=== PATIENT | female | born 1975 | race Caucasian/White ===

== ENCOUNTER 2023-11-25 13:41 | Emergency (ER) | payer BC ==
[2023-11-25] MEDS ORDERED: ONDANSETRON 4 MG/2 ML VIAL ONE (14:46)
[2023-11-25] MEDS ORDERED: MORPHINE 4 MG/ML SYR ONE (14:47)
[2023-11-25] MEDS ORDERED: NA CHLORIDE 0.9% 1,000 ML ONE (14:47)
[2023-11-25 14:56] LABS: Absolute Eosinophils 0.1 K/uL (0-0.5); Absolute Lymphocytes (CBC) 0.4 K/uL (0.7-4.9); Absolute Monocytes 0.4 K/uL (0.1-1.3); Absolute Neutrophil 6.2 K/uL (1.8-8.0); Basophils % 0.3 % (0-1.3); Eosinophils % 1.9 % (0-4.4); Hematocrit 42.5 % (36.0-45.0); Hemoglobin 14.1 g/dL (12.0-15.0); Lymphocytes % 5.4 % (15.3-44.8); MCH 29.1 pg (27.0-35.0); MCHC 33.3 g/dL (32.0-36.0); MCV 87.5 fL (80-100); MPV 9.8 fL (7.6-11.3); Monocytes % 6.3 % (3.3-12.3); Neutrophils % 86.1 % (41.7-73.7); Platelets 186 thou/uL (152-406); RBC Red Blood Cell Count 4.85 M/uL (3.86-4.86)
[2023-11-25] MEDS ORDERED: KETOROLAC 30 MG/ML INJ ONE (14:58)
[2023-11-25 15:13] LABS: Albumin/Globulin Ratio 1.1 (1.1-1.8); Anion Gap 9.7 mEq/L (5.0-15.0); Globulin 3.7 g/dL (2.3-3.5); Potassium 3.7 mEq/L (3.5-5.1); Protein, Total 7.7 g/dL (6.4-8.2)
--- NOTE | 2023-11-25 16:18 | RAD REPORT ---
EXAM DESCRIPTION: CT - Abdomen Pelvis W Contrast - 11/25/2023 4:00 pm CLINICAL HISTORY: Abdominal pain COMPARISON: none. TECHNIQUE: Computed axial tomography of the abdomen pelvis was obtained. 100 cc Isovue-300 was admin istered intravenously. Oral contrast was not requested which limits evaluation of bowel and appendix All CT scans are performed using dose optimization technique as appropriate and may include automated exposure control or mA/KV adjustment according to patient size. FINDINGS: Cholecystectomy The liver, spleen, pancreas, adrenal and kidneys appear unremarkable. There is no evidence of diverticulitis. No adnexal mass. Loop of jejunum mildly to moderately dilated. A calcification is present within the appendix. Portions of the appendix are visualized and are angie l caliber. Small amount of free fluid within the pelvis IMPRESSION: Mild to moderate dilatation of a loop of jejunum probably an enteritis or ileus. An bharat y/partial obstruction is considered less likely. If the patient's symptoms persist followup abdominal plain film series would be recommended Small amount of free fluid within the pelvis
[2023-11-25 16:19] LABS: Blood Morphology Comment NOT SEEN (NOT SEEN); Platelet Estimate ADEQ; White Blood Cell Scan OK (OK)
[2023-11-25 18:18] LABS: Hepatitis B Core IgM Nonreactive (Nonreactive); Hepatitis B surface AG Interp. Nonreactive (Nonreactive); Hepatitis C Virus Ab Nonreactive (Nonreactive)
[2023-11-25 18:19] LABS: HBsAG Nonreactive Report Report
--- NOTE | 2023-11-25 18:24 | ER ---
Nurse's Notes [facility] Name: Alyssa Damon Age: 48 yrs Sex: Female : 1975 Arrival Date: 11/25/2023 Time: 13:41 Bed 6 Private MD: Diagnosis: acute enteritis Presentation: 11/24 14:09 Chief complaint: Patient states: Abdominal pressure worse after eating. + nausea and ll1 constipation. No fever. Coronavirus screen: Client denies travel out of the [place] in the last 14 days. At this time, the client does not indicate any symptoms associated with coronavirus-19. Ebola Screen: Patient denies travel to an Ebola-affected area in the 21 days before illness onset. Initial Sepsis Screen: Does the patient meet any 2 criteria? No. Patient's initial sepsis screen is negative. Does the patient have a suspected source of infection? No. Patient's initial sepsis screen is negative. Risk Assessment: Do you want to hurt yourself or someone else? Patient reports no desire to harm self or others. Onset of symptoms was November 22, 2023. 14:09 Method Of Arrival: Ambulatory [facility] 14:09 Acuity: [place] 3 ll1 Triage Assessment: 14:11 General: Appears uncomfortable, ill, Behavior is calm, cooperative, appropriate for 1 age. Pain: Complains of pain in abdomen Quality of pain is described as aching, pressure, Pain began 2-3 days ago. Neuro: No deficits noted. Cardiovascular: No deficits noted. GI: Reports lower abdominal pain, upper abdominal pain, constipation, cramping, nausea. Historical: - Allergies: 14:08 Latex, Natural Rubber; ll1 14:08 Nickel; ll1 - PMHx: 14:08 None; ll1 - PSHx: 14:08 Tummy tuck with revision; Cholecystectomy; section; tubes tied, ablation; ll1 - Immunization history:: Adult Immunizations up to date. - Social history:: Smoking status: Patient denies any tobacco usage or history of. Screenin:[facility] ED Fall Risk Assessment (Adult) History of falling in the last 3 months, mb9 including since admission No falls in past 3 months (0 pts) Confusion or Disorientation No (0 pts) Intoxicated or Sedated No (0 pts) Impaired Gait No (0 pts) Mobility Assist Device Used No (0 pt) Altered Elimination No (0 pt) Score/Fall Risk Level 0 - 2 = Low Risk Oriented to surroundings, Maintained a safe environment, Educated pt \T\ family on fall prevention, incl call for assistance when getting out of bed, Assessed \T\ reinforced patient's understanding of fall precautions. Abuse screen: Denies threats or abuse. Nutritional screening: No deficits noted. Tuberculosis screening: No symptoms or risk factors identified. Assessment: 14:53 General: Appears uncomfortable, Behavior is cooperative. Pain: Complains of pain in mb9 abdomen Pain radiates to LUQ. Neuro: Oneal Agitation-Sedation Scale (RASS): 0 - Alert and Calm Level of Consciousness is awake, alert, obeys commands, Oriented to person, place, time, situation, Appropriate for age. Cardiovascular: Patient's skin is warm and dry. Respiratory: Airway is patent Respiratory effort is even, unlabored, Respiratory pattern is regular, symmetrical. GI: Abdomen is round non-distended, Bowel sounds present X 4 quads. Abd is soft Abdomen is tender to palpation in left upper quadrant and left lower quadrant. : No signs and/or symptoms were reported regarding the genitourinary system. EENT: No signs and/or symptoms were reported regarding the EENT system. Derm: Skin is intact, Skin is dry, Skin is pale, Skin temperature is cool. Musculoskeletal: Range of motion: intact in all extremities. 16:31 Reassessment: No changes from previously documented assessment. Patient and/or family mb9 updated on plan of care and expected duration. Pain level reassessed. Patient is alert, oriented x 3, equal unlabored respirations, skin warm/dry/pink. 17:30 Reassessment: No changes from previously documented assessment. Patient and/or family mb9 updated on plan of care and expected duration. Pain level reassessed. Patient is alert, oriented x 3, equal unlabored respirations, skin warm/dry/pink. 18:28 Reassessment: No changes from previously documented assessment. Patient and/or family mb9 updated on plan of care and expected duration. Pain level reassessed. Patient is alert, oriented x 3, equal unlabored respirations, skin warm/dry/pink. Vital Signs: 14:09 BP 118 / 78; Pulse 80; Resp 18; Temp 97.8; Pulse Ox 100% ; Weight 72.57 kg; Height 5 ll1 ft. 4 in. ; Pain 7/10; 15:31 BP 117 / 73; Pulse 74; Resp 16; Pulse Ox 100% on R/A; mb9 17:15 BP 113 / 72; Pulse 72; Resp 16; Pulse Ox 100% on R/A; mb9 18:28 BP 118 / 76; Pulse 78; Resp 18; Pulse Ox 100% on R/A; mb9 14:09 Body Mass Index 27.46 (72.57 kg, 162.56 cm) ll1 14:09 Pain Scale: Adult ll1 ED Course: 13:44 Patient arrived in ED. im 13:51 Talia Machado PA-C is PHCP. sb4 13:51 Luis Bran DO is Attending Physician. sb4 13:59 Arm band placed on. ll1 14:10 Triage completed. ll1 14:43 CBC with Diff Sent. bc6 14:43 CMP Sent. bc6 14:43 Lipase Sent. bc6 14:43 Initial lab(s) drawn, by me, sent to lab. Inserted saline lock: 20 gauge in left bc6 antecubital area, using aseptic technique. Blood collected. 14:44 Jessie Steven, RN is Primary Nurse. mb9 14:53 CBC with Diff Sent. mb9 14:53 CMP Sent. mb9 14:53 Lipase Sent. mb9 14:55 Placed in gown. Bed in low position. Call light in reach. Side rails up X 1. Provided mb9 Education on: press call light if needing anything. Client placed on continuous cardiac and pulse oximetry monitoring. NIBP monitoring applied. Door closed. Noise minimized. Warm blanket given. 14:55 No provider procedures requiring assistance completed. mb9 16:02 CT Abd/Pelvis - IV Contrast Only In Process Unspecified. EDMS 18:29 IV discontinued, intact, bleeding controlled, No redness/swelling at site. Pressure mb9 dressing applied. Administered Medications: 14:53 Drug: NS 0.9% IV 1000 ml IV at 1 bolus Per protocol; 1000 mL bolus Route: IV; Rate: 1 mb9 bolus; Site: left antecubital; 17:59 Follow up: Response: No adverse reaction; IV Status: Completed infusion mb9 14:53 Drug: Ondansetron IVP 4 mg IVP once; over 2 minutes Route: IVP; Site: left antecubital; mb9 17:59 Follow up: Response: No adverse reaction mb9 14:53 Not Given (Patient Refused): morphineor iv 4 mg IVP once over 4 mins mb9 14:59 Drug: Ketorolac IVP 30 mg IVP once Route: IVP; Site: left antecubital; mb9 17:59 Follow up: Response: No adverse reaction mb9 18:28 Drug: Dicyclomine IM 20 mg IM once Route: IM; Site: left gluteus; mb9 18:33 Follow up: Response: No adverse reaction mb9 Medication: 14:55 VIS not applicable for this client. mb9 Outcome: 18:23 Discharge ordered by . sb4 18:33 Discharged to home ambulatory, mb9 18:33 Condition: stable 18:33 Discharge instructions given to patient, Instructed on discharge instructions, follow up and referral plans. Demonstrated understanding of instructions, follow-up care, medications, Prescriptions given X 2, 18:33 Patient left the ED. mb9 Signatures: Dispatcher [employer] EDJessy Stratton, RN RN ll1 Talia Machado, PA-C PA-C [id number] Jessie Steven RN RN mb9 Alba Cotto6 Asha Soliman
--- NOTE | 2023-11-25 18:24 | EDPHYS ---
Physician Documentation [facility] Name: Alyssa Damon Age: 48 yrs Sex: Female : 1975 Arrival Date: 11/25/2023 Time: 13:41 Bed 6 Private MD: ED Physician Luis Bran HPI: 11/24 14:14 This 48 yrs old Female presents to ER via Ambulatory with complaints of Abdominal Pain. sb4 14:14 The patient presents with abdominal pain in the periumbilical area. Onset: The sb4 symptoms/episode began/occurred 3 day(s) ago. The symptoms do not radiate. Associated signs and symptoms: Pertinent positives: nausea. The symptoms are described as pressure. Modifying factors: The symptoms are alleviated by nothing, the symptoms are aggravated by food. The patient has not experienced similar symptoms in the past. Patient states that she has been nauseated and having a lot of abdominal pressure in her mid abdomen for the past 3 days. She states that she did start on phentermine 3 weeks ago, but she has taken in the past without any issues. States that she has been taking a laxative with the medication and has had several bowel movements today. She also states that last week she had a revision to her tummy tuck as well as some liposuction. Historical: - Allergies: 14:08 Latex, Natural Rubber; ll1 14:08 Nickel; ll1 - PMHx: 14:08 None; ll1 - PSHx: 14:08 Tummy tuck with revision; Cholecystectomy; section; tubes tied, ablation; ll1 - Immunization history:: Adult Immunizations up to date. - Social history:: Smoking status: Patient denies any tobacco usage or history of. ROS: 14:14 Constitutional: Negative for fever, chills, and weight loss, sb4 14:14 Abdomen/GI: Positive for abdominal pain, nausea, 14:14 All other systems are negative, Exam: 14:14 Constitutional: The patient appears alert, awake, uncomfortable, sb4 14:14 Abdomen/GI: 17:18 Head/Face: Normocephalic, atraumatic. Eyes: Extra-ocular motions intact. Periorbital sb4 areas with no swelling, redness, or edema. ENT: Mucous membranes moist. Cardiovascular: Regular rate and rhythm with a normal S1 and S2. Respiratory: Lungs have equal breath sounds bilaterally, clear to auscultation and percussion. No rales, rhonchi or wheezes noted. No increased work of breathing, no retractions or nasal flaring. Abdomen/GI: Soft, non-tender, no distension. Skin: Warm, dry with normal turgor. Normal color with no rashes, no lesions, and no evidence of cellulitis. MS/ Extremity: Pulses equal, no cyanosis. Neurovascular intact. Full, normal range of motion. Neuro: Awake and alert, GCS 15, oriented to person, place, time, and situation. Motor strength 5/5 in all extremities. Sensory grossly intact. Vital Signs: 14:09 BP 118 / 78; Pulse 80; Resp 18; Temp 97.8; Pulse Ox 100% ; Weight 72.57 kg; Height 5 ll1 ft. 4 in. ; Pain 7/10; 15:31 BP 117 / 73; Pulse 74; Resp 16; Pulse Ox 100% on R/A; mb9 17:15 BP 113 / 72; Pulse 72; Resp 16; Pulse Ox 100% on R/A; mb9 18:28 BP 118 / 76; Pulse 78; Resp 18; Pulse Ox 100% on R/A; mb9 14:09 Body Mass Index 27.46 (72.57 kg, 162.56 cm) ll1 14:09 Pain Scale: Adult ll1 MDM: 14:09 Patient medically screened. sb4 18:22 Data reviewed: vital signs, nurses notes, lab test result(s), radiologic studies, and sb4 as a result, I will discharge patient. Counseling: I had a detailed discussion with the patient and/or guardian regarding the historical points, exam findings, and any diagnostic results supporting the discharge/admit diagnosis, lab results, radiology results, to return to the emergency department if symptoms worsen or persist or if there are any questions or concerns that arise at home. 11/24 14:13 Order name: CBC with Diff; Complete Time: 16:19 sb4 11/24 14:13 Order name: CMP; Complete Time: 15:44 sb4 11/24 14:13 Order name: Lipase; Complete Time: 15:44 sb4 11/24 15:45 Order name: Hepatitis Panel; Complete Time: 18:20 sb4 11/24 16:19 Order name: CBC Smear Scan; Complete Time: 16:19 EDMS 11/24 14:13 Order name: CT Abd/Pelvis - IV Contrast Only; Complete Time: 16:19 sb4 11/24 14:13 Order name: IV Saline Lock; Complete Time: 14:43 sb4 11/24 14:13 Order name: Labs collected and sent; Complete Time: 14:43 sb4 Administered Medications: 14:53 Drug: NS 0.9% IV 1000 ml IV at 1 bolus Per protocol; 1000 mL bolus Route: IV; Rate: 1 mb9 bolus; Site: left antecubital; 17:59 Follow up: Response: No adverse reaction; IV Status: Completed infusion mb9 14:53 Drug: Ondansetron IVP 4 mg IVP once; over 2 minutes Route: IVP; Site: left antecubital; mb9 17:59 Follow up: Response: No adverse reaction mb9 14:53 Not Given (Patient Refused): morphineor iv 4 mg IVP once over 4 mins mb9 14:59 Drug: Ketorolac IVP 30 mg IVP once Route: IVP; Site: left antecubital; mb9 17:59 Follow up: Response: No adverse reaction mb9 18:28 Drug: Dicyclomine IM 20 mg IM once Route: IM; Site: left gluteus; mb9 18:33 Follow up: Response: No adverse reaction mb9 Disposition: 14:49 I was immediately available on-site in the Emergency Department for consultation in the ms3 care of the patient. Disposition Summary: 11/25/23 18:23 Discharge Ordered Notes: Location: Home sb4 Problem: new sb4 Symptoms: have improved sb4 Condition: Stable sb4 Diagnosis - acute enteritis sb4 Followup: sb4 - With: Emergency Department - When: As needed - Reason: Trouble breathing, Worsening of condition Discharge Instructions: - Discharge Summary Sheet sb4 - Viral Gastroenteritis, Adult, [id number] sb4 Forms: - Thank You Letter sb4 - Patient Portal Instructions sb4 - Leadership Thank You Letter sb4 Prescriptions: - Zofran 4 mg Oral Tablet - take 1 tablet ORAL route every 12 hours As needed; 20 tablet; Refills: 0, sb4 Product Selection Permitted - dicyclomine 20 mg Oral tablet - take 1 tablet ORAL route 3 times per day; 20 tablet; Refills: 0, Product sb4 Selection Permitted Signatures: Dispatcher [employer] Jessy Vera, RN RN ll1 Luis Bran, DO [place] ms3 Talia Machado, SEDRICK DUBOSE sb4 Jessie Steven, RN RN mb9
[2023-11-25] MEDS ORDERED: DICYCLOMINE HCL 20 MG/2 ML AMP IM ONE (18:27)
[2023-11-25 19:26] VITALS: BP 118/76; TEMP 97.8; O2SAT 100
== END 2023-11-25 18:33 | disposition home or self-care (01) ==
LOC: ER 13:41
DX: K52.9 Noninfective gastroenteritis and colitis, unspecified (principal); Z98.890 Other specified postprocedural states; Z91.040 Latex allergy status; Z91.048 Other nonmedicinal substance allergy status
CPT/HCPCS: 96361; 85025; 36415; 83690; 80053; 80074; 74177; 96375; 96372; 96374; 99284; Q9967; J0500; J2405; J7030